=== PATIENT | male | born 1985 | race Hispanic/Latino ===

== ENCOUNTER 2025-07-03 08:56 | Outpatient (CLI) | payer OTHER | END 2025-07-03 08:57 | disposition home or self-care (01) | LOC: CSHSLEEP 08:56 | PROVIDERS: ATTEND Student in an Organized Health Care Education/Training Program | DX: G47.33 Obstructive sleep apnea (adult) (pediatric) (principal); R53.83 Other fatigue; E66.9 Obesity, unspecified; Z68.32 Body mass index [BMI] 32.0-32.9, adult; R06.83 Snoring | CPT/HCPCS: 95800 ==